=== PATIENT | male | born 1995 | race Two or more races ===

== ENCOUNTER 2023-01-22 22:10 | Emergency (ER) | payer OTHER ==
[2023-01-22 22:25] VITALS: BP 127/90; PULSE 89; RESP 18; TEMP 97.8; BMI 19.8
[2023-01-22 23:37] LABS: HEMOGLOBIN 16.9 G/dL (11.7-16.9); MCH 31.2 pg (25.7-33.7); MCHC 34.4 g/dl (32.0-35.9); MEAN CELL VOLUME 90.8 fl (80-96); MEAN PLT VOLUME 7.5 fl (7.5-11.1); PLATELET COUNT 218.1 10^3/uL (134-434); RDW 13.5 % (11.9-15.9); WHITE BLOOD COUNT 7.8 10^3/uL (4.0-10.8)
[2023-01-22 23:45] LABS: PLATELET ESTIMATE ADEQUATE
[2023-01-22 23:52] LABS: ALBUMIN 4.6 g/dl (3.4-5.0); BILIRUBIN,TOTAL 0.8 mg/dl (0.2-1); CALCIUM 9.5 mg/dl (8.5-10); CREATININE 0.6 mg/dl (0.55-1.3); TOT PROT 7.3 g/dl (6.4-8.2)
== END 2023-01-23 00:13 | disposition home or self-care (01) ==
LOC: FER 22:10
DX: R00.2 Palpitations (principal)
CPT/HCPCS: 36415; 80053; 85027; 93005; 99284-25